=== PATIENT | female | born 1970 | race Caucasian/White ===

== ENCOUNTER 2018-01-08 22:17 | Emergency (ER) | payer SELFPAY ==
[~2018-01-08] VITALS: Ht 157.5 cm; Wt 65.8 kg
--- NOTE | 2018-01-08 22:30 | NUR ---
TO ER BED 11 C/O SUPRAPUBIC ABDOMINAL PAIN X "1 HOUR." AA/OX4. +N/V/D. SKIN PINK, WARM, DRY. AMBULATED TO HOSPITAL BED WITH STABLE GAIT. NO S/S SOB. SHARP TYPE PAIN, 10/10 PAIN, NON RADIATING. NAD. VSS. PEDAL PULSES PRESENT. MOVES ALL EXTREMITIES WELL. STABLE CONDITION. WILL CONTINUE TO MONITOR.
[2018-01-08] MEDS ORDERED: ONDANSETRON HCL/PF 4 MG/2 ML VIAL ONE (22:41)
[2018-01-08] MEDS ORDERED: HYDROMORPHONE 1 MG/1 ML DISP.SYRIN ONE (22:41)
[2018-01-08] MEDS ORDERED: IV NS 0.9% 1,000 ML BAG IV ONE (23:00)
[2018-01-08] MEDS ORDERED: ONDANSETRON HCL/PF 4 MG/2 ML VIAL IVP ONE (23:00)
[2018-01-08] MEDS ORDERED: HYDROMORPHONE INJ 2 MG/ML DISP.SYRIN IV ONE (23:00)
[2018-01-08 23:06] LABS: BASOPHILS % (AUTO) 0.4 % (0.0-2.0); HEMATOCRIT 43 % (33-45); HEMOGLOBIN 13.9 g/dL (11.5-14.8); LYMPHOCYTES # (AUTO) 2.4 /CMM (0.8-4.8); LYMPHOCYTES % (AUTO) 32.6 % (20.0-44.0); MEAN CORPUSCULAR HGB CONC 33 g/dl (31.0-36.0); MEAN CORPUSCULAR VOLUME 84 fL (82-100); MONOCYTES # (AUTO) 0.6 /CMM (0.1-1.30); MONOCYTES % (AUTO) 8.6 % (2.0-12.0); NEUTROPHILS # (AUTO) 4.1 /CMM (1.8-8.9); NEUTROPHILS % (AUTO) 55.4 % (43.0-81.0); PLATELET COUNT (AUTO) 277 /CMM (150-450); RDW COEFFICIENT OF VARIATION 13.4 (11.5-15.0); RED BLOOD CELL COUNT(AUTO) 5.05 MIL/uL (4.0-5.2); WHITE BLOOD COUNT (AUTO) 7.3 K/uL (4.3-11.0)
[2018-01-08 23:22] LABS: CREATININE 0.7 mg/dL (0.6-1.3); POTASSIUM 3.8 mmol/L (3.5-5.1)
[2018-01-08 23:28] LABS: ALBUMIN 3.4 g/dL (3.4-5.0); BILIRUBIN,TOTAL 0.3 mg/dL (0.2-1.0); TOTAL PROTEIN, SERUM 7.1 g/dL (6.4-8.2)
--- NOTE | 2018-01-08 23:56 | NUR ---
PT AA/OX 4. LAUGHING WITH FAMILY AT BEDSIDE. NAD. VSS.
[2018-01-09 00:03] LABS: APPEARANCE,URINE SL CLOUDY (CLEAR); BILIRUBIN,URINE NEGATIVE (NEGATIVE); BLOOD, URINE NEGATIVE Ery/uL (NEGATIVE); COLOR,URINE YELLOW (YELLOW); KETONES,URINE NEGATIVE (NEGATIVE); LEUKOCYTE ESTERASE ,URINE NEGATIVE (NEGATIVE); NITRITE, URINE NEGATIVE (NEGATIVE); PROTEIN,URINE NEGATIVE (NEGATIVE); UGLUCOSE NEGATIVE (NEGATIVE); UROBILINOGEN,URINE 0.2 EU/dL (0.2)
--- NOTE | 2018-01-09 01:14 | NUR ---
Patient discharged to home in stable condition. Written and verbal after care instructions given. Patient verbalizes understanding of instruction. IV removed. Catheter intact and site benign. Pressure and 4x4 applied to site. No bleeding noted. AMBULATED WITH STEADY GAIT. INSTRUCTED NOT TO DRIVE OR OPERATE HEAVY MACHINERY.
[2018-01-09 01:15] VITALS: BP 148/80
== END 2018-01-09 01:16 | disposition home or self-care (01) ==
LOC: ER 22:20
DX: R10.31 Right lower quadrant pain (principal); R11.2 Nausea with vomiting, unspecified; R19.7 Diarrhea, unspecified; Z98.890 Other specified postprocedural states
CPT/HCPCS: 36415; 76856-TC; 80048-TC; 80076-TC; 81000-TC; 83690-TC; 84702-TC; 85025-TC; 87086-TC; A4606; J1170; J2405; J7030; Z7610

== ENCOUNTER 2023-06-28 00:34 | Emergency (ER) | payer OTHER ==
[~2023-06-28] VITALS: Ht 167.6 cm; Wt 98.4 kg
[2023-06-28 00:43] VITALS: TEMP 97.9
[2023-06-28] MEDS: NICOTINE PATCH (21MG) 21 MG PATCH.TD24 TD SCH (01:56)
[2023-06-28] MEDS: NICOTINE PATCH (21MG) 21 MG PATCH.TD24 TD ONE (01:57)
[2023-06-28 02:01] VITALS: BP 129/77; O2SAT 96
== END 2023-06-28 02:02 | disposition home or self-care (01) ==
LOC: ER 00:36
DX: I11.0 Hypertensive heart disease with heart failure (principal); I50.9 Heart failure, unspecified; R06.02 Shortness of breath; F41.9 Anxiety disorder, unspecified; I48.91 Unspecified atrial fibrillation; E78.00 Pure hypercholesterolemia, unspecified; F17.200 Nicotine dependence, unspecified, uncomplicated; Z98.890 Other specified postprocedural states; Z88.5 Allergy status to narcotic agent; Z88.1 Allergy status to other antibiotic agents
CPT/HCPCS: 71045-TC